=== PATIENT | male | born 1975 | race Hispanic/Latino ===

== ENCOUNTER 2016-06-01 01:15 | Emergency (ER) | payer SELFPAY ==
[2016-06-01 01:35] VITALS: BP 138/90; PULSE 128; RESP 18; TEMP 98.7; O2SAT 96; BMI 19.0
--- NOTE | 2016-06-01 01:44 | ED PDOC ---
Arrival/HPI - General Chief Complaint: Psychiatric Evaluation Time Seen by Provider: 06/01/16 01:22 Historian: Patient - History of Present Illness Narrative History of Present Illness (Text): 06/01/16 01:44 Barry Diallo is a 40 year old male who presents to the Emergency department brought in by EMS status post argument with his ex-. Patient states he recently from his spouse and reports tonight he got in to an argument with his ex-. Patient states he refused to answer his phone following the argument and his ex- notified their son. Son became concerned that the patient was not answering the phone and called the police. Patient states he feels completely fine and denies any depression, suicidal ideation, homicidal ideation, or any other complaints. Patient admits to drinking alcohol earlier during the day. Patient denies any fever, chills, chest pain, shortness of breath, nausea, vomiting, diarrhea, urinary symptoms, back pain, neck pain, headache, dizziness, or any other complaints. Time/Duration: Other (tonight) Symptom Onset: Gradual Symptom Course: Unchanged Activities at Onset: Rest, Light Context: Home Past Medical History - Provider Review Nursing Documentation Reviewed: Yes - Past History Past History: No Previous - Infectious Disease Hx of Infectious Diseases: None - Tetanus Immunization Tetanus Immunization: Up to Date - Past Medical History Past Medical History: No Previous - Cardiac Hx Cardiac Disorders: No - Pulmonary Hx Respiratory Disorders: No - Neurological Hx Neurological Disorder: No - HEENT Hx HEENT Disorder: No - Renal Hx Renal Disorder: No - Endocrine/Metabolic Hx Endocrine Disorders: No - Hematological/Oncological Hx Blood Disorders: No - Integumentary Hx Dermatological Disorder: No - Musculoskeletal/Rheumatological Hx Musculoskeletal Disorders: No - Gastrointestinal Hx Gastrointestinal Disorders: No - Genitourinary/Gynecological Hx Genitourinary Disorders: No - Psychiatric Hx Depression: No Hx Emotional Abuse: No Hx Physical Abuse: No Hx Substance Use: No - Past Surgical History Past Surgical History: No Previous - Anesthesia Hx Anesthesia: No - Suicidal Assessment Feels Threatened In Home Enviroment: No Family/Social History - Physician Review Nursing Documentation Reviewed: Yes Family/Social History: No Known Family HX Smoking Status: Light Smoker < 10 Cigarettes Daily Hx Alcohol Use: Yes Frequency of alcohol use: Socially Hx Substance Use: No Hx Substance Use Treatment: No Allergies/Home Meds Allergies/Adverse Reactions: Allergies No Known Allergies Allergy (Verified 04/27/17 01:33) Home Medications: Home Meds Medication Instructions Recorded Confirmed No Known Home Med 06/01/16 06/01/16 Review of Systems - Physician Review All systems were reviewed & negative as marked: Yes - Review of Systems Constitutional: Normal. absent: Fevers Eyes: Normal ENT: Normal Respiratory: Normal. absent: SOB, Cough Cardiovascular: Normal. absent: Chest Pain Gastrointestinal: Normal. absent: Abdominal Pain, Diarrhea, Nausea, Vomiting Genitourinary Male: Normal. absent: Dysuria, Frequency, Hematuria, Urinary Output Changes Musculoskeletal: Normal. absent: Back Pain, Neck Pain Skin: Normal. absent: Rash Neurological: Normal. absent: Headache, Dizziness Endocrine: Normal Hemo/Lymphatic: Normal Psychiatric: Normal. absent: Depression, Suicidal Ideation Physical Exam Vital Signs Reviewed: Yes Vital Signs Temp Pulse Resp BP Pulse Ox 06/01/16 01:34 98.7 F 128 H 18 138/90 96 Temperature: Afebrile Blood Pressure: Normal Pulse: Regular Respiratory Rate: Normal Appearance: Positive for: Well-Appearing, Non-Toxic, Comfortable Pain Distress: None Mental Status: Positive for: Alert and Oriented X 3 - Systems Exam Head: Present: Atraumatic, Normocephalic Pupils: Present: PERRL Extroacular Muscles: Present: EOMI Conjunctiva: Present: Normal Mouth: Present: Moist Mucous Membranes Neck: Present: Normal Range of Motion Respiratory/Chest: Present: Clear to Auscultation, Good Air Exchange. No: Respiratory Distress, Accessory Muscle Use Cardiovascular: Present: Regular Rate and Rhythm, Normal S1, S2. No: Murmurs Abdomen: Present: Normal Bowel Sounds. No: Tenderness, Distention, Peritoneal Signs Back: Present: Normal Inspection Upper Extremity: Present: Normal Inspection. No: Cyanosis, Edema Lower Extremity: Present: Normal Inspection. No: Edema Neurological: Present: GCS=15, CN II-XII Intact, Speech Normal Skin: Present: Warm, Dry, Normal Color. No: Rashes Psychiatric: Present: Alert, Oriented x 3, Normal Insight, Normal Concentration Medical Decision Making ED Course and Treatment: 06/01/16 01:44 Impression: 40 year old male brought in s/p argument with ex- tonight. Plan: -- EKG -- Labs, alcohol level -- Urinalysis, urine drug screen -- Reassess and disposition Prior Visits: Notes and results from previous visits were reviewed. cleared by pes for dc Progress Notes: 06/01/16 05:39 - Lab Interpretations Lab Results: 06/01/16 02:17 06/01/16 02:17 Lab Results 06/01/16 03:52: Salicylates < 1 L, Acetaminophen < 10.0 L 06/01/16 02:17: Urine Opiates Screen Negative, Urine Methadone Screen Negative, Ur Barbiturates Screen Negative, Ur Phencyclidine Scrn Negative, Ur Amphetamines Screen Negative, U Benzodiazepines Scrn Negative, U Oth Cocaine Metabols Negative, U Cannabinoids Screen Negative 06/01/16 02:17: Alcohol, Quantitative 170 H 06/01/16 02:17: Sodium 141, Potassium 3.6, Chloride 97, Carbon Dioxide 21, Anion Gap 27 H, BUN 21, Creatinine 0.6, Est GFR ( Amer) > 60, Est GFR ( Non-Af Amer) > 60, Random Glucose 115 H, Calcium 8.8, Total Bilirubin 0.3, AST 35, ALT 36, Alkaline Phosphatase 87, Total Protein 8.0, Albumin 4.5, Globulin 3.4, Albumin/Globulin Ratio 1.3 06/01/16 02:17: Urine Color Yellow, Urine Appearance Clear, Urine pH 6.5, Ur Specific [place] 1.020, Urine Protein 30 H, Urine Glucose (UA) Negative, Urine Ketones Trace H, Urine Blood Negative, Urine Nitrate Negative, Urine Bilirubin Negative, Urine Urobilinogen 0.2, Ur Leukocyte Esterase Negative, Urine RBC 0 - 2, Urine WBC 0 - 2, Ur Epithelial Cells 0 - 2 06/01/16 02:17: WBC 7.4 D, RBC 5.04, Hgb 16.3, Hct 45.8, MCV 90.9, MCH 32.3, MCHC 35.6, RDW 13.3, Plt Count 223, MPV 9.9, Gran % 66.1, Lymph % (Auto) 26.0, [place] % (Auto) 6.5 H, Eos % (Auto) 0.9 L, Baso % (Auto) 0.5, Gran # 4.87, Lymph # 1.9, [place] # 0.5, Eos # 0.1, Baso # 0.04 I have reviewed the lab results: Yes - EKG Interpretation Interpreted by ED Physician: Yes Type: 12 lead EKG - Scribe Statement The provider has reviewed the documentation as recorded by the Dolly Miranda Provider Attestation: All medical record entries made by the Dolly were at my direction and personally dictated by me. I have reviewed the chart and agree that the record accurately reflects my personal performance of the history, physical exam, medical decision making, and the department course for this patient. I have also personally directed, reviewed, and agree with the discharge instructions and disposition. Disposition/Present on Arrival - Present on Arrival Any Indicators Present on Arrival: No History of DVT/PE: No History of Uncontrolled Diabetes: No Urinary Catheter: No History of Decub. Ulcer: No History Surgical Site Infection Following: None - Disposition Have Diagnosis and Disposition been Completed?: Yes Diagnosis: Substance induced mood disorder Disposition: HOME/ ROUTINE Disposition Time: 05:39 Condition: GOOD
[2016-06-01 02:31] LABS: ADD MANUAL DIFF? NO
[2016-06-01 02:38] LABS: PH,URINE 6.5 (4.7-8.0); URINE BILIRUBIN NEGATIVE (NEGATIVE); URINE BLOOD NEGATIVE (NEGATIVE); URINE GLUCOSE (UA) NEGATIVE (NEGATIVE); URINE KETONE TRACE mg/dL (NEGATIVE); URINE LEUKOCYTE ESTERASE NEGATIVE Leu/uL (NEGATIVE); URINE PROTEIN 30 mg/dL (<30 mg/dL); URINE UROBILINOGEN 0.2 E.U./dL (<1 E.U./dL)
[2016-06-01 02:40] LABS: BASO # 0.04 K/mm3 (0.0-2.0); BASO % 0.5 % (0.0-3.0); EOS # 0.1 (0.0-0.7); EOS % 0.9 % (1.5-5.0); GRAN # 4.87 (1.4-6.5); GRAN % 66.1 % (50.0-68.0); HEMATOCRIT 45.8 % (42.0-52.0); LYMPH # 1.9 (1.2-3.4); MEAN CELL VOLUME 90.9 fL (80.0-105.0); MEAN CORPUSCULAR HEMOGLOBIN 32.3 pg (25.0-35.0); MEAN CORPUSCULAR HGB CONC 35.6 g/dl (31.0-37.0); MEAN PLATELET VOLUME 9.9 fl (7.0-11.0); MONO # 0.5 (0.1-0.6); MONO % 6.5 % (1.0-6.0); PLATELET COUNT 223 10^3/uL (120.0-450.0); RED CELL DISTRIBUTION WIDTH 13.3 % (11.5-14.5); WHITE BLOOD COUNT 7.4 10^3/ul (4.5-11.0)
[2016-06-01 02:45] LABS: URINE APPEARANCE CLEAR (CLEAR); URINE COLOR YELLOW (YELLOW)
[2016-06-01 02:48] LABS: URINE EPITHELIAL CELLS 0 - 2 /hpf (0-5); URINE RBC 0 - 2 /hpf (0-2); URINE WBC 0 - 2 /hpf (0-6)
[2016-06-01 02:49] LABS: ALB/GLOB RATIO 1.3 (1.1-1.8); ALKALINE PHOSPHATASE 87 U/L (38-133); ALT/SGPT 36 U/L (7-56); AST/SGOT 35 U/L (15-59); BILIRUBIN,TOTAL 0.3 mg/dL (0.2-1.3); BLOOD UREA NITROGEN 21 mg/dL (7-21); CALCIUM 8.8 mg/dL (8.4-10.5); CARBON DIOXIDE 21 mmol/L (21-33); CHLORIDE 97 mmol/L (95-110); GFR AFRICAN-AMERICAN > 60; GLUCOSE,RANDOM 115 mg/dL (70-110); POTASSIUM 3.6 mmol/L (3.6-5.0); SODIUM 141 mmol/L (132-148)
--- NOTE | 2016-06-01 10:19 | CARD ---
APPROVED REPORT EKG Measurement Heart [id number] <Conclusion> Sinus tachycardia Possible Left atrial enlargement
== END 2016-06-01 05:46 | disposition home or self-care (01) ==
LOC: ED 01:15
DX: F19.94 Other psychoactive substance use, unspecified with psychoactive substance-induced mood disorder (principal)
CPT/HCPCS: 80053; 81001; 85025; 90791; 93005; 99283; G0480

== ENCOUNTER 2016-07-26 06:56 | Inpatient (IN) | payer OTHER ==
[2016-07-26 06:58] VITALS: BMI 19.0
[2016-07-26 07:33] LABS: ADD MANUAL DIFF? NO
[2016-07-26 07:38] LABS: BASO # 0.03 K/mm3 (0.0-2.0); BASO % 0.4 % (0.0-3.0); EOS # 0.1 (0.0-0.7); EOS % 1.3 % (1.5-5.0); GRAN # 4.94 (1.4-6.5); GRAN % 72.9 % (50.0-68.0); HEMATOCRIT 41.8 % (42.0-52.0); LYMPH # 1.2 (1.2-3.4); MEAN CELL VOLUME 91.5 fL (80.0-105.0); MEAN CORPUSCULAR HEMOGLOBIN 31.9 pg (25.0-35.0); MEAN CORPUSCULAR HGB CONC 34.9 g/dl (31.0-37.0); MEAN PLATELET VOLUME 9.7 fl (7.0-11.0); MONO # 0.5 (0.1-0.6); MONO % 7.4 % (1.0-6.0); PLATELET COUNT 223 10^3/uL (120.0-450.0); RED CELL DISTRIBUTION WIDTH 13.4 % (11.5-14.5); WHITE BLOOD COUNT 6.8 10^3/ul (4.5-11.0)
[2016-07-26 07:51] LABS: ALB/GLOB RATIO 1.4 (1.1-1.8); ALKALINE PHOSPHATASE 91 U/L (38-133); ALT/SGPT 30 U/L (7-56); AST/SGOT 28 U/L (15-59); BILIRUBIN,TOTAL 1.7 mg/dL (0.2-1.3); BLOOD UREA NITROGEN 14 mg/dL (7-21); CALCIUM 9.1 mg/dL (8.4-10.5); CARBON DIOXIDE 24 mmol/L (21-33); CHLORIDE 100 mmol/L (98-107); GFR AFRICAN-AMERICAN > 60; GLUCOSE,RANDOM 87 mg/dL (70-110); POTASSIUM 3.4 mmol/L (3.6-5.0); SODIUM 136 mmol/L (132-148); TOTAL PROTEIN 7.1 g/dL (5.8-8.3)
--- NOTE | 2016-07-26 08:28 | ED PDOC ---
Arrival/HPI - General Chief Complaint: Psychiatric Evaluation Time Seen by Provider: 07/26/16 07:14 Historian: Patient - History of Present Illness Narrative History of Present Illness (Text): 07/26/16 07:15 A 40 year old male with no significant past medical history presents to the emergency department with complaints of depression with suicidal ideation and mild tremors, which worsened with drinking for the last few days. Patient denies homicidal ideation, visual, auditory hallucinations, or any other symptoms at this time. PMD: None Symptom Onset: Gradual Symptom Course: Worsening Modifying Factors (Text): Alcohol use Context: Home Past Medical History - Past History Past History: No Previous - Infectious Disease Hx of Infectious Diseases: None - Tetanus Immunization Tetanus Immunization: Up to Date - Past Medical History Past Medical History: No Previous - Cardiac Hx Cardiac Disorders: No - Pulmonary Hx Respiratory Disorders: No - Neurological Hx Neurological Disorder: No - HEENT Hx HEENT Disorder: No - Renal Hx Renal Disorder: No - Endocrine/Metabolic Hx Endocrine Disorders: No - Hematological/Oncological Hx Blood Disorders: No - Integumentary Hx Dermatological Disorder: No - Musculoskeletal/Rheumatological Hx Musculoskeletal Disorders: No - Gastrointestinal Hx Gastrointestinal Disorders: No - Genitourinary/Gynecological Hx Genitourinary Disorders: No - Psychiatric Hx Psychophysiologic Disorder: Yes Hx Anxiety: Yes Hx Depression: Yes Hx Substance Use: No - Past Surgical History Past Surgical History: No Previous - Anesthesia Hx Anesthesia: No - Suicidal Assessment Feels Threatened In Home Enviroment: No Family/Social History - Physician Review Nursing Documentation Reviewed: Yes Family/Social History: Unknown Family HX Smoking Status: Heavy Smoker > 10 Cigarettes Daily Hx Alcohol Use: Yes Frequency of alcohol use: Few days per week Hx Substance Use: No Hx Substance Use Treatment: No Allergies/Home Meds Allergies/Adverse Reactions: Allergies No Known Allergies Allergy (Verified 06/01/16 01:33) Home Medications: Home Meds Medication Instructions Recorded Confirmed No Known Home Med 06/01/16 07/26/16 Review of Systems - Physician Review All systems were reviewed & negative as marked: Yes - Review of Systems Constitutional: Normal. absent: Fevers Eyes: Normal. absent: Eye Pain Respiratory: absent: SOB, Cough Cardiovascular: absent: Chest Pain Gastrointestinal: absent: Abdominal Pain Musculoskeletal: Normal. absent: Back Pain Neurological: Other (Mild tremors) Psychiatric: Depression, Suicidal Ideation, Other (No homicidal ideation or hallucinations ) Physical Exam Vital Signs Reviewed: Yes Vital Signs Temp Pulse Resp BP Pulse Ox 07/26/16 10:56 109 H 18 125/66 100 07/26/16 09:09 88 18 132/86 99 07/26/16 07:08 98.1 F 91 H 20 127/80 97 Temperature: Afebrile Blood Pressure: Normal Pulse: Regular Respiratory Rate: Normal Appearance: Positive for: Well-Appearing, Non-Toxic, Comfortable Pain Distress: None Mental Status: Positive for: Alert and Oriented X 3 - Systems Exam Head: Present: Atraumatic, Normocephalic Pupils: Present: PERRL Extroacular Muscles: Present: EOMI Conjunctiva: Present: Normal Mouth: Present: Moist Mucous Membranes Neck: Present: Normal Range of Motion Respiratory/Chest: Present: Clear to Auscultation, Good Air Exchange. No: Respiratory Distress, Accessory Muscle Use Cardiovascular: Present: Regular Rate and Rhythm, Normal S1, S2. No: Murmurs Abdomen: Present: Normal Bowel Sounds. No: Tenderness, Distention, Peritoneal Signs Upper Extremity: Present: Normal Inspection. No: Cyanosis, Edema Lower Extremity: Present: Normal Inspection. No: Edema Neurological: Present: GCS=15, CN II-XII Intact, Speech Normal, Other (mild tremors) Skin: Present: Warm, Dry, Normal Color. No: Rashes Psychiatric: Present: Alert, Oriented x 3, Normal Insight, Suicidal Ideation. No: Homicidal Ideation, Hallucinations Medical Decision Making ED Course and Treatment: Impression: A 40 year old male presents with depression, suicidal ideation and mild tremors, which worsened with alcohol use. Differential Diagnosis included but are not limited to: Plan: -- EKG -- Labs -- Librium, Potassium Chloride -- Reassess and disposition Prior Visits: Notes and results from previous visits were reviewed. Patient was last seen in the Emergency department on 06/01/16 brought in by EMS after argument and discharged home. Progress Notes: EKG: Ordered, reviewed, and independently interpreted the EKG. Rate : 86 BPM Rhythm : NSR Interpretation : No ST/T changes Chest X-Ray Bus System Operator : Padmini Segura MD Report Date : 07/26/2016 09:40 IMPRESSION: No active pulmonary disease. Patient is medically cleared. Patient evaluated by PES and is accepted to psych department. - Lab Interpretations Lab Results: 07/26/16 07:21 07/26/16 07:21 Lab Results 07/26/16 09:00: Urine Opiates Screen Negative, Urine Methadone Screen Negative, Ur Barbiturates Screen Negative, Ur Phencyclidine Scrn Negative, Ur Amphetamines Screen Negative, U Benzodiazepines Scrn Negative, U Oth Cocaine Metabols Negative, U Cannabinoids Screen Negative 07/26/16 09:00: Urine Color Dark yellow, Urine Appearance Clear, Urine pH 6.0, Ur Specific [place] 1.025, Urine Protein 30 H, Urine Glucose (UA) Negative, Urine Ketones >=80, Urine Blood Negative, Urine Nitrate Negative, Urine Bilirubin Moderate H, Urine Urobilinogen 1.0 H, Ur Leukocyte Esterase Negative, Urine RBC 0 - 2, Urine WBC 0 - 2, Ur Epithelial Cells 0 - 2, Urine Bacteria Trace 07/26/16 07:21: Alcohol, Quantitative < 10 07/26/16 07:21: Salicylates < 1 L, Acetaminophen < 10.0 L 07/26/16 07:21: Sodium 136, Potassium 3.4 L, Chloride 100, Carbon Dioxide 24, Anion Gap 15, BUN 14, Creatinine 0.6, Est GFR ( Amer) > 60, Est GFR (Non- Af Amer) > 60, Random Glucose 87, Calcium 9.1, Total Bilirubin 1.7 H, AST 28, ALT 30, Alkaline Phosphatase 91, Total Protein 7.1, Albumin 4.2, Globulin 2.9, Albumin/Globulin Ratio 1.4 07/26/16 07:21: WBC 6.8, RBC 4.57, Hgb 14.6, Hct 41.8 L, MCV 91.5, MCH 31.9, MCHC 34.9, RDW 13.4, Plt Count 223, MPV 9.7, Gran % 72.9 H, Lymph % (Auto) 18.0 L, [place] % (Auto) 7.4 H, Eos % (Auto) 1.3 L, Baso % (Auto) 0.4, Gran # 4.94, Lymph # 1.2, [place] # 0.5, Eos # 0.1, Baso # 0.03 - RAD Interpretation Radiology Orders: 07/26/16 07:17 CHEST PORTABLE [RAD] Stat - Medication Orders Current Medication Orders: Discontinued Medications Chlordiazepoxide (Librium) 50 mg PO STAT STA PRN Reason: Protocol Stop: 07/26/16 07:18 Last Admin: 07/26/16 07:37 Dose: 50 mg Potassium Chloride (K-Dur 20 Meq Er Tab) 20 meq PO STAT STA Stop: 07/26/16 09:08 Last Admin: 07/26/16 09:16 Dose: 20 meq - Scribe Statement The provider has reviewed the documentation as recorded by the Dolly Esparza training under [place] Josie Provider Scribe Attestation: All medical record entries made by the Alejandroiblaney were at my direction and personally dictated by me. I have reviewed the chart and agree that the record accurately reflects my personal performance of the history, physical exam, medical decision making, and the department course for this patient. I have also personally directed, reviewed, and agree with the discharge instructions and disposition. Disposition/Present on Arrival - Present on Arrival Any Indicators Present on Arrival: No History of DVT/PE: No History of Uncontrolled Diabetes: No Urinary Catheter: No History of Decub. Ulcer: No History Surgical Site Infection Following: None - Disposition Have Diagnosis and Disposition been Completed?: Yes Diagnosis: Depression, Alcohol use disorder Disposition Time: 10:00 Condition: STABLE
[2016-07-26] MEDS ORDERED: Potassium Chloride 20 mEq ER Tab PO STA (09:07)
[2016-07-26 09:36] LABS: URINE BILIRUBIN MODERATE (NEGATIVE); URINE BLOOD NEGATIVE (NEGATIVE); URINE GLUCOSE (UA) NEGATIVE (NEGATIVE); URINE KETONE >=80 mg/dL (NEGATIVE); URINE LEUKOCYTE ESTERASE NEGATIVE Leu/uL (NEGATIVE); URINE PROTEIN 30 mg/dL (<30 mg/dL)
[2016-07-26 09:41] LABS: URINE APPEARANCE CLEAR (CLEAR); URINE COLOR DARK YELLOW (YELLOW)
--- NOTE | 2016-07-26 09:41 | RAD ---
HISTORY: pysch COMPARISON: 06/08/2014. FINDINGS: LUNGS: The lungs are well inflated and clear. PLEURA: No significant pleural effusion identified, no pneumothorax apparent. CARDIOVASCULAR: Normal. OSSEOUS STRUCTURES: No significant abnormalities. VISUALIZED UPPER ABDOMEN: Normal. OTHER FINDINGS: None. IMPRESSION: No active pulmonary disease.
[2016-07-26 09:43] LABS: URINE BACTERIA TRACE (NEG); URINE EPITHELIAL CELLS 0 - 2 /hpf (0-5); URINE RBC 0 - 2 /hpf (0-2); URINE WBC 0 - 2 /hpf (0-6)
[2016-07-26 10:57] VITALS: O2SAT 100
--- NOTE | 2016-07-26 15:28 | CARD ---
APPROVED REPORT EKG Measurement Heart [id number] <Conclusion> Normal sinus rhythm Normal ECG
--- NOTE | 2016-07-26 16:21 | PCM.BM ---
<Augusto Jarquin - Last Filed: 07/27/16 10:24> Treatment Plan Problems - Problems identified on initial assessmt Anxiety Date Initiated: 07/26/16 Time Initiated: 16:19 Assessment reference: NA Status: Active Priority: 1 Suicidal Date Initiated: 07/26/16 Time Initiated: 16:20 Assessment reference: NA Status: Active Priority: 2 Ineffective coping Date Initiated: 07/26/16 Time Initiated: 16:22 Assessment reference: NA Status: Active Priority: 3 alcohol use Date Initiated: 07/27/16 Time Initiated: 10:25 Assessment reference: NA Status: Active Priority: 4 Treatment team patient informa Patient Assests: educated, self-reliant, ADL independent, physically healthy, cognitively intact Patient Liabilities: live alone, financial problems, relationship conflicts, substance abuse - Milieu Protocol Maintain good personal hygiene: daily Encourage regular showers, daily Remind patient to perform daily oral care, daily Assist patient to perform ADL's Maintain personal safety: daily Educate patient to report safety concerns to staff, daily Monitor environment for contraband/sharps Medication safety: Monitor for expected outcome, potential side effects: daily, Assess barriers to learning: daily, Assess readiness for medication education: daily Family Contact Family involvement: Famliy/SO not involved Discharge/Continuing Care - Education Needs Education Needs: Patient Medication, Patient Diagnosis/Disease Process, Patient Coping Skills, Patient Anger Management skills, Patient Community resources, Patient Activities of Daily Living, Patient Health Practices/Safety, Patient Personal Hygiene/Grooming, Patient Aftercare Safety Plan - Discharge Discharge Criteria: Tolerates medication w/o severe side effects, Free of Suicidal thoughts, Normal sleep pattern, Ability to care for self, No longer exhibiting s/s of withdrawal, Reduction of target symptoms Discharge to:: Home <Michelle Lazar - Last Filed: 07/28/16 15:13> Treatment team patient informa Patient Assests: ADL independent, negotiates basic needs Patient Liabilities: poor support system, relationship conflicts, substance abuse - Milieu Protocol Maintain good personal hygiene: daily Encourage regular showers, daily Remind patient to perform daily oral care, daily Assist patient to perform ADL's Conduct patient checks and document Observation sheet: Q15 minutes Maintain personal safety: every shift Educate patient to report safety concerns to staff, every shift Monitor environment for contraband/sharps Medication safety: Monitor for expected outcome, potential side effects: every shift, Assess barriers to learning: every shift, Assess readiness for medication education: every shift Family Contact Family involvement: Family/SO is involved Discharge/Continuing Care - Education Needs Education Needs: Patient Medication, Patient Diagnosis/Disease Process, Patient Coping Skills, Patient Community resources, Patient Activities of Daily Living, Patient Personal Hygiene/Grooming - Discharge Discharge Criteria: Free of Suicidal thoughts, Normal sleep pattern, Ability to care for self, No longer exhibiting s/s of withdrawal Discharge to:: Home <Verónica Livingston - Last Filed: 07/28/16 17:06> DSM5-Treatment Plan - Diagnosis (1) MDD (major depressive disorder) Status: Acute Interventions: 07/27/16 13:54 * Assess/adjust medications daily and /or as needed * See patient on an individual basis 7x/week to assess symptoms of depression * Monitor for side effects & effectiveness of medications * psychoeducation * suicide prevention * compliance with meds and f/u appt * coping strategies * family therapy * (2) Alcohol dependence with uncomplicated withdrawal Status: Acute Interventions: 07/27/16 13:55 * Assess/adjust medications daily and /or as needed * See patient on an individual basis 7x/week to assess symptoms of depression * Monitor for side effects & effectiveness of medications * motivational interview * supportive therapy * relapse prevention * monitoring withdrawal symptoms * coping strategies * AA, NA meetings * M[facility] program * naltrexone/antabuse/campral (3) Alcohol use disorder Status: Acute Interventions: Assess/adjust medications daily and /or as needed * See patient on an individual basis 7x/week to assess symptoms of depression * Monitor for side effects & effectiveness of medications * motivational interview * supportive therapy * relapse prevention * monitoring withdrawal symptoms * coping strategies * AA, NA meetings * M[facility] program * naltrexone/antabuse/campral
[2016-07-27 07:59] LABS: CHOLESTEROL 157 mg/dL (130-200); GLUCOSE,FASTING 96 mg/dL (65-110)
[2016-07-27 08:17] LABS: FREE T4 1.15 ng/dL (0.78-2.19)
[2016-07-27 08:31] LABS: THYROID STIMULATING HORMONE 3.42 mIU/mL (0.46-4.68)
[2016-07-27] MEDS: Multivitamin Therapeutic Tab PO SCH (09:12)
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
--- NOTE | 2016-07-27 14:27 | CP.PCM.CON ---
<Ernst Natarajan - Last Filed: 07/27/16 14:19> History of Present Illness - History of Present Illness History of Present Illness: Internal Medicine Consult Note This is a 40 y/o male admitted to psychiatric unit for depression and SI. Patient states he has been feeling depressed. He states he has been binge drinking 3 to 4 times a week for the past several weeks. Prior to admission he notes that he binge drank and woke up the next morning and suffered what he thought was a seizure. He denies ingestion of other drugs in suicide attempt. He reports withdrawal sx after alcohol cessation. Patient denies homicidal ideation. States that prior to admission he planned to drink enough alcohol in order to commit suicide. Patient also notes chronic gastric reflux. States he has suffered from this for years. He does not take any medication for this, nor any other prescription medications. PMH: GERD, depression PSH: none Fhx: liver cirrhosis Social Hx: admits to smoking 1ppd for about 20 years. Binge drinking 1L to 1 gallon of vodka at a time. Last drink was prior to arrival. Denies illicit drug use. PMD: Dr. Nicol Juan Review of Systems - Constitutional Constitutional: absent: Chills, Fever, Headache - EENT Eyes: absent: Blurred Vision, Change in Vision Nose/Mouth/Throat: absent: Nasal Congestion, Nasal Discharge, Sore Throat - Cardiovascular Cardiovascular: absent: Chest Pain, Dyspnea - Respiratory Respiratory: absent: Cough, Dyspnea - Gastrointestinal Gastrointestinal: Dyspepsia. absent: Abdominal Pain, Diarrhea, Dysphagia, Loose Stools, Nausea, Vomiting - Genitourinary Genitourinary: absent: Dysuria, Hematuria - Musculoskeletal Musculoskeletal: absent: Back Pain - Integumentary Integumentary: absent: Pruritus, Rash - Neurological Neurological: absent: Dizziness, Numbness, Focal Weakness - Psychiatric Psychiatric: Depression, Suicidal Ideation. absent: Hallucinations, Homicidal Ideation, Paranoia Past Patient History - Infectious Disease Hx of Infectious Diseases: None - Tetanus Immunizations Tetanus Immunization: Up to Date - Past Social History Smoking Status: Heavy Smoker > 10 Cigarettes Daily - CARDIAC Hx Cardiac Disorders: No - PULMONARY Hx Respiratory Disorders: No - NEUROLOGICAL Hx Neurological Disorder: No - HEENT Hx HEENT Problems: No - RENAL Hx Chronic Kidney Disease: No - ENDOCRINE/METABOLIC Hx Endocrine Disorders: No - HEMATOLOGICAL/ONCOLOGICAL Hx Blood Disorders: No - INTEGUMENTARY Hx Dermatological Problems: No - MUSCULOSKELETAL/RHEUMATOLOGICAL Hx Musculoskeletal Disorders: No - GASTROINTESTINAL Hx Gastrointestinal Disorders: No - GENITOURINARY/GYNECOLOGICAL Hx Genitourinary Disorders: No - PSYCHIATRIC Hx Psychophysiologic Disorder: Yes Hx Anxiety: Yes Hx Depression: Yes Hx Substance Use: No - SURGICAL HISTORY Hx Surgeries: No - ANESTHESIA Hx Anesthesia: No Meds Allergies/Adverse Reactions: Allergies Allergy/AdvReac Type Severity Reaction Status Date / Time No Known Allergies Allergy Verified 06/01/16 01:33 - Medications Medications: Current Medications Acetaminophen (Tylenol 325mg Tab) 650 mg PO Q4H PRN PRN Reason: Pain, moderate (4-7) Last Admin: 07/26/16 14:11 Dose: 650 mg Bupropion HCl (Wellbutrin) 75 mg PO BID [facility] Chlordiazepoxide (Librium) 50 mg PO QID [facility] PRN Reason: Protocol Last Admin: 07/27/16 13:43 Dose: 50 mg Folic Acid (Folic Acid) 1 mg PO DAILY [facility] Last Admin: 07/27/16 09:12 Dose: 1 mg Multivitamins (Thera Tab) 1 tab PO 0800 [facility] Last Admin: 07/27/16 09:12 Dose: 1 tab Nicotine (Nicoderm Cq) 1 patch TD DAILY [facility] Last Admin: 07/27/16 09:12 Dose: 1 patch Pantoprazole Sodium (Protonix Ec Tab) 40 mg PO 0600 [facility] Thiamine HCl (Vitamin B1 Tab) 100 mg PO DAILY [facility] Last Admin: 07/27/16 09:12 Dose: 100 mg Trazodone HCl (Desyrel) 50 mg PO HS [facility] Last Admin: 07/26/16 21:13 Dose: 50 mg Physical Exam - Constitutional Appears: Non-toxic, No Acute Distress - Head Exam Head Exam: ATRAUMATIC, NORMOCEPHALIC - Eye Exam Eye Exam: EOMI, PERRL - ENT Exam ENT Exam: Mucous Membranes Moist - Respiratory Exam Respiratory Exam: Clear to Auscultation Bilateral. absent: Rales, Rhonchi - Cardiovascular Exam Cardiovascular Exam: REGULAR RHYTHM - GI/Abdominal Exam GI & Abdominal Exam: Soft. absent: Tenderness - Extremities Exam Extremities exam: Positive for: normal inspection. Negative for: calf tenderness, pedal edema - Neurological Exam Neurological exam: Alert, Oriented x3 - Psychiatric Exam Psychiatric exam: Normal Affect, Normal Mood - Skin Skin Exam: Dry, Warm Results - Vital Signs Recent Vital Signs: Last Vital Signs Temp 97.4 F L 07/27/16 07:49 Pulse 90 07/27/16 07:49 Resp 20 07/27/16 07:49 BP 104/76 07/27/16 07:49 Pulse Ox 100 07/26/16 10:56 - Labs Result Diagrams: 07/26/16 07:21 07/26/16 07:21 Labs: Laboratory Results - last 24 hr 07/27/16 07/27/16 07:00 07:00 Fasting Glucose 96 Triglycerides 143 Cholesterol 157 LDL Cholesterol Direct 92 HDL Cholesterol 55 Free T4 1.15 TSH 3rd Generation 3.42 Assessment & Plan - Assessment and Plan (Free Text) Assessment: 40 y/o male admitted to psychiatry with depression and suicidal ideation. alchohol abuse - Librium taper - Ativan PRN added - alcohol cessation discussed with patient. He is advised to continue with AA meetings, psychiatric care once discharged. Explained that alcohol cessation will positively effect his mental illness. Gastric reflux - Protonix 40mg daily - advised that he will need to f/u with PCP as outpatient for GI referral Tobacco use - Nicotine patch has been ordered - patient advised on the importance of tobacco cessation. Dispo: patient will need medical f/u after discharge with his PCP. Will follow patient peripherally. Please re-consult if necessary. <Reina García - Last Filed: 07/27/16 15:46> Meds - Medications Medications: Current Medications Acetaminophen (Tylenol 325mg Tab) 650 mg PO Q4H PRN PRN Reason: Pain, moderate (4-7) Last Admin: 07/26/16 14:11 Dose: 650 mg Bupropion HCl (Wellbutrin) 75 mg PO BID [facility] Chlordiazepoxide (Librium) 50 mg PO QID RACHELLE PRN Reason: Protocol Last Admin: 07/27/16 13:43 Dose: 50 mg Folic Acid (Folic Acid) 1 mg PO DAILY [facility] Last Admin: 07/27/16 09:12 Dose: 1 mg Multivitamins (Thera Tab) 1 tab PO 0800 [facility] Last Admin: 07/27/16 09:12 Dose: 1 tab Nicotine (Nicoderm Cq) 1 patch TD DAILY [facility] Last Admin: 07/27/16 09:12 Dose: 1 patch Pantoprazole Sodium (Protonix Ec Tab) 40 mg PO 0600 RACHELLE Thiamine HCl (Vitamin B1 Tab) 100 mg PO DAILY [facility] Last Admin: 07/27/16 09:12 Dose: 100 mg Trazodone HCl (Desyrel) 50 mg PO HS RACHELLE Last Admin: 07/26/16 21:13 Dose: 50 mg Results - Vital Signs Recent Vital Signs: Last Vital Signs Temp 97.4 F L 07/27/16 07:49 Pulse 115 H 07/27/16 15:38 Resp 20 07/27/16 07:49 BP 94/67 L 07/27/16 15:38 Pulse Ox 100 07/26/16 10:56 - Labs Result Diagrams: 07/26/16 07:21 07/26/16 07:21 Labs: Laboratory Results - last 24 hr 07/27/16 07/27/16 07:00 07:00 Fasting Glucose 96 Triglycerides 143 Cholesterol 157 LDL Cholesterol Direct 92 HDL Cholesterol 55 Free T4 1.15 TSH 3rd Generation 3.42 Attending/Attestation - Attestation I have personally seen and examined this patient.: Yes I have fully participated in the care of the patient.: Yes I have reviewed all pertinent clinical information: Yes Notes (Text): 07/27/16 15:44 attending note; Patient seen and examined with resident in room 514. Patient is a 40-year old male admitted with depression. Patient with chronic alcohol abuse. Continue Librium, multivitamin, thiamine, folic acid. Complete alcohol cessation is strongly advised. advised to attend AA meeting/AA rehabilitation. weigh and charge worker evaluation recommended. Active smoking; smoking cessation is advised. Currently on NicoDerm patch. History of GERD/alcohol or gastritis; started on Protonix. Needs GI evaluation and possible endoscopy as outpatient. patient is medically stable. advised to follow-up with PMD Dr. Juan upon discharge. Please reconsult as needed. Thank you for the courtesy of this consultation.
[2016-07-28] MEDS ORDERED: Pantoprazole 40 mg EC Tab PO SCH (06:00)
[2016-07-28] MEDS: Multivitamin Therapeutic Tab PO SCH (09:21)
--- NOTE | 2016-07-28 17:13 | PCM.PYCHPN ---
Psychiatric Progress Note - Psychiatric Progress Note Patient seen today, length of contact: 30 minutes Patient Chief Complaint: "I think I'm ready for naltrexone" Problems Identified/Issues Discussed: Suicide/ homicide prevention, past psychiatric h/o, current psychiatric symptoms , medical problems, risk/benefits and alternatives of medications, medications compliance, coping strategies, substance abuse h/o, relapse prevention, importance of follow up with psychiatrist and therapist, discharge plan. Medical Problems: see HPI pt never been in AA meeting, no rehabs or detoxes Diagnostic Results: 07/26/16 07:21 07/26/16 07:21 Lab Results 07/27/16 07:00: Free T4 1.15, TSH 3rd Generation 3.42 07/27/16 07:00: Fasting Glucose 96, Triglycerides 143, Cholesterol 157, LDL Cholesterol Direct 92, HDL Cholesterol 55 07/26/16 09:00: Urine Opiates Screen Negative, Urine Methadone Screen Negative, Ur Barbiturates Screen Negative, Ur Phencyclidine Scrn Negative, Ur Amphetamines Screen Negative, U Benzodiazepines Scrn Negative, U Oth Cocaine Metabols Negative, U Cannabinoids Screen Negative 07/26/16 09:00: Urine Color Dark yellow, Urine Appearance Clear, Urine pH 6.0, Ur Specific [place] 1.025, Urine Protein 30 H, Urine Glucose (UA) Negative, Urine Ketones >=80, Urine Blood Negative, Urine Nitrate Negative, Urine Bilirubin Moderate H, Urine Urobilinogen 1.0 H, Ur Leukocyte Esterase Negative, Urine RBC 0 - 2, Urine WBC 0 - 2, Ur Epithelial Cells 0 - 2, Urine Bacteria Trace 07/26/16 07:21: Alcohol, Quantitative < 10 07/26/16 07:21: Salicylates < 1 L, Acetaminophen < 10.0 L 07/26/16 07:21: Sodium 136, Potassium 3.4 L, Chloride 100, Carbon Dioxide 24, Anion Gap 15, BUN 14, Creatinine 0.6, Est GFR ( Amer) > 60, Est GFR (Non- Af Amer) > 60, Random Glucose 87, Calcium 9.1, Total Bilirubin 1.7 H, AST 28, ALT 30, Alkaline Phosphatase 91, Total Protein 7.1, Albumin 4.2, Globulin 2.9, Albumin/Globulin Ratio 1.4 07/26/16 07:21: WBC 6.8, RBC 4.57, Hgb 14.6, Hct 41.8 L, MCV 91.5, MCH 31.9, MCHC 34.9, RDW 13.4, Plt Count 223, MPV 9.7, Gran % 72.9 H, Lymph % (Auto) 18.0 L, Gates % (Auto) 7.4 H, Eos % (Auto) 1.3 L, Baso % (Auto) 0.4, Gran # 4.94, Lymph # 1.2, Gates # 0.5, Eos # 0.1, Baso # 0.03 Vital Signs Temp Pulse Resp BP Pulse Ox 07/28/16 16:13 101 H 97/61 L 07/28/16 07:30 98.1 F 88 20 100/67 07/27/16 15:38 115 H 94/67 L 07/27/16 07:49 97.4 F L 90 20 104/76 07/26/16 15:54 113 H 115/73 07/26/16 10:56 109 H 18 125/66 100 07/26/16 09:09 88 18 132/86 99 07/26/16 07:08 98.1 F 91 H 20 127/80 97 DSM 5 Symptoms Update: shortly pt is 40yo male, self reported h/o ADHD, h/o alcohol use disorder, self reported h/o MDD, not working, from the family//kids due to his alcohol addiction, was admitted to the psychiatric inpatient unit for evaluation of depressive symptoms, possible suicidal ideation with the plan to overdose on alcohol. pt was seen and examined today at the treatment team meeting, improved personal hygiene, less tearful, good ADLs. patient still has fine tremor in upper extremities, reported that at times he feels nauseated, all of the symptoms related to alcohol withdrawal symptoms, patient still tachycardic, patient also Librium 50 mg 4 times a day scheduled with the plan to taper that down. pt said that he is ready for naltrexon, risk benefits alternatives discussed with the patient. Patient is complained of insomnia still asked trazodone to be increased, patient did not have any therapeutic effect from Wellbutrin. Patient reported that he feels hopeless and helpless, very depressed, self blaming, a lot of regrets about his mistakes in life. patient tolerates medications well, no side effects observed or reported, aims 0 , no EPS. As per nursing staff patient preferred to stay by himself, but at times visible on the unit, flat affect, started to socialize with others, no agitation or aggression no behavioral incident. DSM 5 Diagnosis: MDD r/o substance induced mood disorder alcohol use disorder alcohol withdrawals (better) Medication Change: Yes (the Wellbutrin increased, trazodone increased, started) Medical Record Reviewed: Yes (labs, reports,medical team consultation) Consults ordered or reviewed: medical consult appreciated, please see notes for more detailed information Mental Status Examination - Cognitive Function Orientation: Person, Place, Situation, Time Memory: Intact Attention: Poor Concentration: Poor Association: WNL Fund of Knowledge: WNL - Mood Mood: Depressed - Affect Affect: Flat (and tearful) - Speech Speech: Appropriate - Formal Thought Process Formal Thought Process: No Impairment - Suicidal Ideation Suicidal Ideation: No - Homicidal Ideation Homicidal Ideation: No Goal/Treatment Plan - Goal/Treatment Plan Need for Continued Stay: Remain at risks for inpatient hospitalization, Severe depression anxiety, Discharge may exacerbated symptoms, Severe functional impairment Progress Toward Problem(s) and Goals/Treatment Plan: milieu/structure/supportive therapy MVI,thiamine, folic acid librium 50mg po qid scheduled for alcohol withdrawals with the plan to wean if off will monitor vitals closely Trazodone 100mg po hs for depression and insomnia will give Wellbutrin 100 bid for MDD and for ADHD (? self reported) home health care social worker evaluation pt never been in the rehabs in the past pt never attend AA meetings pt might benefit from family therapy medical consult will be called will monitor closely Nalterxone 50 MG WAS STARTED, RISK BENEFITS ALTERNATIVES DISCUSSED, EDUCATED ABOUT REVIA INJECTION Estimated Date of D/C: 08/01/16 (we'll monitor closely)
[2016-07-29] MEDS: Pantoprazole 40 mg EC Tab PO SCH (08:00)
[2016-07-29] MEDS: Multivitamin Therapeutic Tab PO SCH (09:00)
--- NOTE | 2016-07-29 09:09 | PCM.PYCHPN ---
Psychiatric Progress Note - Psychiatric Progress Note Patient seen today, length of contact: 25 minutes Patient Chief Complaint: depressed and anxious Problems Identified/Issues Discussed: I reviewed assessment and recent notes. I met with patient at bedside. He is well-oriented to date, location and circumstances. Patient reports feeling depressed and anxious. He is more hopeless than hopeful however denies having any suicidal thoughts. Affect is constricted and generally congruent to mood. His thought process is fairly coherent and responses are relevant to questioning. He is not hallucinating and denies paranoia. Delusions were not elicited. Presently patient denies any new discomfort or pain. He is tolerating his medications. Reports that he slept well. Staff notes indicate the patient has been cooperative on the unit. Visible and attending groups. There were no behavioral issues overnight. Diagnostic Results: MDD r/o substance induced mood disorder alcohol use disorder alcohol withdrawals (better) Medication Change: No ( ) Medical Record Reviewed: Yes (labs, reports,medical team consultation) Mental Status Examination - Cognitive Function Orientation: Person, Place, Situation, Time Memory: Intact Attention: Poor Concentration: Poor Association: WNL Fund of Knowledge: WNL - Mood Mood: Depressed - Affect Affect: Flat (and tearful) - Speech Speech: Appropriate - Formal Thought Process Formal Thought Process: No Impairment - Suicidal Ideation Suicidal Ideation: No - Homicidal Ideation Homicidal Ideation: No Goal/Treatment Plan - Goal/Treatment Plan Need for Continued Stay: Remain at risks for inpatient hospitalization, Severe depression anxiety, Discharge may exacerbated symptoms, Severe functional impairment Progress Toward Problem(s) and Goals/Treatment Plan: * c/w current tx and plan * Librium 50 mg QID tapered to Librium 50 mg TID on 07/29/16 * No new weekend labs * Vitals reviewed and noted below: Selected Entries 07/27/16 07/27/16 07/28/16 07:49 15:38 07:30 Temperature 97.4 F L 98.1 F Pulse Rate 90 115 H 88 Respiratory 20 20 Rate Blood Pressure 104/76 94/67 L 100/67 07/28/16 16:13 Temperature Pulse Rate 101 H Respiratory Rate Blood Pressure 97/61 L Estimated Date of D/C: 08/01/16 (we'll monitor closely)
[2016-07-29] MEDS ORDERED: Magnesium Hydroxide Susp 30 ml UD PO PRN (20:13)
--- NOTE | 2016-07-30 08:42 | PCM.PYCHPN ---
Psychiatric Progress Note - Psychiatric Progress Note Patient seen today, length of contact: 25 minutes Patient Chief Complaint: depressed and anxious Problems Identified/Issues Discussed: I reviewed recent notes and met with patient in the dayroom. He is well- oriented to date, location and circumstances. Patient reports feeling depressed and anxious. Denies any changes over the weekend but feels like he is sleeping better. Again he indicates that he feels more hopeless than hopeful however denies suicidal thoughts. Affect is constricted and generally congruent to mood. His thought process is fairly coherent and responses are relevant to questioning. He is not hallucinating and denies paranoia. Delusions were not elicited. Presently patient denies any new discomfort or pain. He is tolerating his medications. Main concern for him at this time is "to have a conversation with a nursing home social worker". Staff notes indicate the patient has been cooperative and social on the unit. Visible attending and participating in groups. There were no behavioral issues over the weekend. Diagnostic Results: MDD r/o substance induced mood disorder alcohol use disorder alcohol withdrawals (better) Medication Change: No ( ) Medical Record Reviewed: Yes (labs, reports,medical team consultation) Mental Status Examination - Cognitive Function Orientation: Person, Place, Situation, Time Memory: Intact Attention: Poor Concentration: Poor Association: WNL Fund of Knowledge: WNL - Mood Mood: Depressed, Anxious - Affect Affect: Flat (and tearful) - Speech Speech: Appropriate - Formal Thought Process Formal Thought Process: No Impairment - Suicidal Ideation Suicidal Ideation: No - Homicidal Ideation Homicidal Ideation: No Goal/Treatment Plan - Goal/Treatment Plan Need for Continued Stay: Remain at risks for inpatient hospitalization, Severe depression anxiety, Discharge may exacerbated symptoms, Severe functional impairment Progress Toward Problem(s) and Goals/Treatment Plan: * c/w current tx and plan * Librium 50 mg QID tapered to Librium 50 mg TID on 07/29/16 * No new weekend labs * Vitals reviewed and noted below: Selected Entries 07/29/16 07/29/16 07:00 16:58 Temperature 97.2 F L Pulse Rate 82 80 Respiratory 22 Rate Blood Pressure 94/62 L 94/62 L Estimated Date of D/C: 08/01/16 (we'll monitor closely)
[2016-07-30] MEDS: Multivitamin Therapeutic Tab PO SCH (10:18)
[2016-07-30] MEDS: Pantoprazole 40 mg EC Tab PO SCH (10:18)
[2016-07-30] MEDS: POLYETHYLENE GLYCOL 3350 17 GM/Dose PACKET PO SCH (14:31)
[2016-07-31] MEDS: Pantoprazole 40 mg EC Tab PO SCH (07:55)
[2016-07-31] MEDS: Multivitamin Therapeutic Tab PO SCH (07:55)
[2016-07-31] MEDS: POLYETHYLENE GLYCOL 3350 17 GM/Dose PACKET PO SCH (07:56)
--- NOTE | 2016-08-01 00:39 | PN ---
DATE: 07/31/[address] Livingston. Chart reviewed and case discussed with nursing. The patient is a 40-year-old depressed white male whose had left him in February, presumably candis use of his alcohol history. He has also lost his job over this. The patient presently appears to be pensive, obsessive, depressed, somewhat melodramatic. He is complaining of an inability to sleep; at the same time feeling sluggish in the morning. As suc h, I have lowered his trazodone 100 to 50 mg. 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 He has a long history of alcohol abuse, but he is indicating that he drinks because he is depressed. Psychotropically, he is being maintained on trazodone 50 mg, Librium will changed to a p.r.n. schedul e, he complains of some tremulousness, naltrexone 50 mg, Wellbutrin 100 mg b.i.d. Blood pressure 101/64, pulse 99. The patient is not overtly psychotic nor suicidal. Emil Bowling MD, PhD cc: [id number] TT: 08/01/2016 00:39:18 Confirmation # [id number] Dictation # [id number] marcos
[2016-08-01] MEDS: Multivitamin Therapeutic Tab PO SCH (08:40)
[2016-08-01] MEDS: POLYETHYLENE GLYCOL 3350 17 GM/Dose PACKET PO SCH (08:40)
[2016-08-01] MEDS: Pantoprazole 40 mg EC Tab PO SCH (08:40)
[2016-08-02] MEDS: POLYETHYLENE GLYCOL 3350 17 GM/Dose PACKET PO SCH ×2 (08:56→10:12)
[2016-08-02] MEDS: Pantoprazole 40 mg EC Tab PO SCH (08:57)
[2016-08-02] MEDS: Multivitamin Therapeutic Tab PO SCH (08:57)
[2016-08-03] MEDS: POLYETHYLENE GLYCOL 3350 17 GM/Dose PACKET PO SCH (08:43)
[2016-08-03] MEDS: Multivitamin Therapeutic Tab PO SCH (08:44)
[2016-08-03] MEDS: Pantoprazole 40 mg EC Tab PO SCH (08:44)
[2016-08-04 07:40] VITALS: BP 108/62; PULSE 82; RESP 16; TEMP 97.2
[2016-08-04] MEDS: Multivitamin Therapeutic Tab PO SCH (08:31)
[2016-08-04] MEDS: Pantoprazole 40 mg EC Tab PO SCH (08:45)
--- NOTE | 2016-08-04 09:00 | PCM.PYCHPN ---
Psychiatric Progress Note - Psychiatric Progress Note Patient seen today, length of contact: 25 minutes. this is note of 11/03 Patient Chief Complaint: anxiety/depression DSM 5 Symptoms Update: anxious,needy,dependant Medication Change: No ( ) Medical Record Reviewed: Yes (labs, reports,medical team consultation) Mental Status Examination - Cognitive Function Orientation: Person, Place, Situation, Time Memory: Intact Attention: Poor Concentration: Poor Association: WNL Fund of Knowledge: WNL - Mood Mood: Depressed, Anxious - Affect Affect: Flat (and tearful) - Speech Speech: Appropriate - Formal Thought Process Formal Thought Process: No Impairment - Suicidal Ideation Suicidal Ideation: No - Homicidal Ideation Homicidal Ideation: No Goal/Treatment Plan - Goal/Treatment Plan Need for Continued Stay: Remain at risks for inpatient hospitalization, Severe depression anxiety, Discharge may exacerbated symptoms, Severe functional impairment Progress Toward Problem(s) and Goals/Treatment Plan: working on transfer to rehab Estimated Date of D/C: 08/01/16 (we'll monitor closely)
[2016-08-04] MEDS: POLYETHYLENE GLYCOL 3350 17 GM/Dose PACKET PO SCH (11:12)
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
== END 2016-08-04 11:46 | disposition home or self-care (01) | DRG 426 ==
LOC: ED 06:56 → ERH 09:53 → PSYC 12:21
PROVIDERS: ADMIT Psychiatry & Neurology Psychiatry; ATTEND Psychiatry & Neurology Psychiatry
PROC: GZ3ZZZZ Medication Management (ICD-10-PCS; principal; 2016-07-26)
DX: F32.9 Major depressive disorder, single episode, unspecified (principal); F10.239 Alcohol dependence with withdrawal, unspecified; R45.851 Suicidal ideations; F41.9 Anxiety disorder, unspecified; F90.9 Attention-deficit hyperactivity disorder, unspecified type; K21.9 Gastro-esophageal reflux disease without esophagitis; F17.210 Nicotine dependence, cigarettes, uncomplicated; K29.70 Gastritis, unspecified, without bleeding; G47.00 Insomnia, unspecified

== ENCOUNTER 2016-08-04 15:50 | Inpatient (IN) | payer OTHER ==
[2016-08-04 16:01] VITALS: BMI 21.2
--- NOTE | 2016-08-04 16:12 | ED PDOC ---
Arrival/HPI - General Chief Complaint: Psychiatric Evaluation Time Seen by Provider: 08/04/16 15:55 Historian: Patient - History of Present Illness Narrative History of Present Illness (Text): 08/04/16 16:11 40 year old male sent by Dr. Sanches for evaluation. Patient was admitted for depression and discharged home through [facility]. Patient reports he tested positive for opiates and was not allowed to enter the program. Patient states he had a breakdown, still complaining of depression and suicidal ideation. No other complaints. Symptom Onset: Sudden Symptom Course: Unchanged Modifying Factors (Text): None Associated Symptoms (Text): None Past Medical History - Provider Review Nursing Documentation Reviewed: Yes - Past History Past History: No Previous - Infectious Disease Hx of Infectious Diseases: None - Tetanus Immunization Tetanus Immunization: Up to Date - Past Medical History Past Medical History: No Previous - Cardiac Hx Cardiac Disorders: No - Pulmonary Hx Respiratory Disorders: No - Neurological Hx Neurological Disorder: No - HEENT Hx HEENT Disorder: No - Renal Hx Renal Disorder: No - Endocrine/Metabolic Hx Endocrine Disorders: No - Hematological/Oncological Hx Blood Disorders: No - Integumentary Hx Dermatological Disorder: No - Musculoskeletal/Rheumatological Hx Musculoskeletal Disorders: No - Gastrointestinal Hx Gastrointestinal Disorders: No - Genitourinary/Gynecological Hx Genitourinary Disorders: No - Psychiatric Hx Psychophysiologic Disorder: Yes Hx Anxiety: Yes Hx Depression: Yes Hx Substance Use: Yes Other/Comment: ADHD - Past Surgical History Past Surgical History: No Previous - Anesthesia Hx Anesthesia: No - Suicidal Assessment Feels Threatened In Home Enviroment: No Family/Social History - Physician Review Nursing Documentation Reviewed: Yes Family/Social History: Unknown Family HX Smoking Status: Current Some Days Smoker Hx Alcohol Use: Yes Hx Substance Use: Yes Hx Substance Use Treatment: No Allergies/Home Meds Allergies/Adverse Reactions: Allergies No Known Allergies Allergy (Verified 06/01/16 01:33) Home Medications: Home Meds Medication Instructions Recorded Confirmed buPROPion [Bupropion HCl] 100 mg PO BID 08/04/16 08/04/16 Review of Systems - Physician Review All systems were reviewed & negative as marked: Yes - Review of Systems Cardiovascular: absent: Chest Pain Gastrointestinal: absent: Abdominal Pain Psychiatric: Depression, Suicidal Ideation Physical Exam Vital Signs Reviewed: Yes Vital Signs Temp Pulse Resp BP Pulse Ox 08/04/16 18:34 68 18 117/78 100 08/04/16 16:04 98.4 F 101 H 18 108/76 97 Temperature: Afebrile Blood Pressure: Normal Pulse: Regular Respiratory Rate: Normal Appearance: Positive for: Well-Appearing, Non-Toxic, Comfortable Pain Distress: None Mental Status: Positive for: Alert and Oriented X 3 - Systems Exam Head: Present: Atraumatic, Normocephalic Pupils: Present: PERRL Extroacular Muscles: Present: EOMI Conjunctiva: Present: Normal Mouth: Present: Moist Mucous Membranes Neck: Present: Normal Range of Motion Respiratory/Chest: Present: Clear to Auscultation, Good Air Exchange. No: Respiratory Distress, Accessory Muscle Use Cardiovascular: Present: Regular Rate and Rhythm, Normal S1, S2. No: Murmurs Abdomen: Present: Normal Bowel Sounds. No: Tenderness, Distention, Peritoneal Signs Back: Present: Normal Inspection Upper Extremity: Present: Normal Inspection. No: Cyanosis, Edema Lower Extremity: Present: Normal Inspection. No: Edema Neurological: Present: GCS=15, CN II-XII Intact, Speech Normal Skin: Present: Warm, Dry, Normal Color. No: Rashes Psychiatric: Present: Alert, Oriented x 3, Normal Insight, Normal Concentration Medical Decision Making ED Course and Treatment: Impression: 40 year old male sent by Dr. Sanches for evaluation. Differential Diagnosis include but are not limited to: Plan: -- EKG, Chest X-ray -- Labs -- PES evaluation -- Reassess and disposition Progress Notes: 08/04/16 17:00 Patient medically cleared for PES evaluation. 08/04/16 18:40 Patient evaluated by PES screener and accepted for admission - Lab Interpretations Lab Results: 08/04/16 16:20 08/04/16 16:20 Lab Results 08/04/16 16:20: Urine Opiates Screen Negative, Urine Methadone Screen Negative, Ur Barbiturates Screen Negative, Ur Phencyclidine Scrn Negative, Ur Amphetamines Screen Negative, U Benzodiazepines Scrn Positive H, U Oth Cocaine Metabols Negative, U Cannabinoids Screen Negative 08/04/16 16:20: Alcohol, Quantitative < 10 08/04/16 16:20: Salicylates < 1 L, Acetaminophen < 10.0 L 08/04/16 16:20: Sodium 139, Potassium 4.1, Chloride 99, Carbon Dioxide 29, Anion Gap 15, BUN 16, Creatinine 0.8, Est GFR ( Amer) > 60, Est GFR (Non- Af Amer) > 60, Random Glucose 90, Calcium 9.0, Total Bilirubin 0.3, AST 21, ALT 28, Alkaline Phosphatase 63, Total Protein 7.2, Albumin 4.2, Globulin 3.0, Albumin/Globulin Ratio 1.4 08/04/16 16:20: Urine Color Yellow, Urine Appearance Clear, Urine pH 6.0, Ur Specific [place] 1.015, Urine Protein Negative, Urine Glucose (UA) Negative, Urine Ketones Negative, Urine Blood Negative, Urine Nitrate Negative, Urine Bilirubin Negative, Urine Urobilinogen 0.2, Ur Leukocyte Esterase Negative 08/04/16 16:20: WBC 5.9, RBC 4.17, Hgb 13.1 L, Hct 39.8 L, MCV 95.4, MCH 31.4, MCHC 32.9, RDW 13.4, Plt Count 248, MPV 9.5, Gran % 67.0, Lymph % (Auto) 20.1 L , [place] % (Auto) 10.7 H, Eos % (Auto) 1.7, Baso % (Auto) 0.5, Gran # 3.96, Lymph # 1.2, [place] # 0.6, Eos # 0.1, Baso # 0.03 - RAD Interpretation Radiology Orders: 08/04/16 16:10 CHEST PORTABLE [RAD] Stat - EKG Interpretation Interpreted by ED Physician: Yes (EKG shows NSR at 93 BPM, No ST/T wave changes) Type: 12 lead EKG - Scribe Statement The provider has reviewed the documentation as recorded by the Dolly Galindo Provider Scribe Attestation: All medical record entries made by the Dolly were at my direction and personally dictated by me. I have reviewed the chart and agree that the record accurately reflects my personal performance of the history, physical exam, medical decision making, and the department course for this patient. I have also personally directed, reviewed, and agree with the discharge instructions and disposition. Disposition/Present on Arrival - Present on Arrival Any Indicators Present on Arrival: No History of DVT/PE: No History of Uncontrolled Diabetes: No Urinary Catheter: No History of Decub. Ulcer: No History Surgical Site Infection Following: None - Disposition Have Diagnosis and Disposition been Completed?: Yes Diagnosis: Depression, Alcohol use disorder Disposition: HOSPITALIZED Disposition Time: 07:00 Condition: STABLE Referrals: Krista Juan DO [Primary Care Provider] - Follow up with primary
[2016-08-04 16:31] LABS: URINE BILIRUBIN NEGATIVE (NEGATIVE); URINE BLOOD NEGATIVE (NEGATIVE); URINE GLUCOSE (UA) NEGATIVE (NEGATIVE); URINE LEUKOCYTE ESTERASE NEGATIVE Leu/uL (NEGATIVE); URINE NITRATE NEGATIVE (NEGATIVE); URINE PROTEIN NEGATIVE mg/dL (<30 mg/dL); URINE UROBILINOGEN 0.2 E.U./dL (<1 E.U./dL)
[2016-08-04 16:32] LABS: URINE APPEARANCE CLEAR (CLEAR); URINE COLOR YELLOW (YELLOW)
[2016-08-04 16:47] LABS: BARBITURATES, UR NEGATIVE (NEGATIVE); BENZODIAZEPINES, UR POSITIVE (NEGATIVE); OPIATES, UR NEGATIVE (NEGATIVE); PHENCYCLIDINE, UR NEGATIVE (NEGATIVE); SALICYLATE < 1 mg/dL (2.0-20.0)
[2016-08-04 16:48] LABS: ALB/GLOB RATIO 1.4 (1.1-1.8); ALBUMIN 4.2 g/dL (3.0-4.8); ALT/SGPT 28 U/L (7-56); AST/SGOT 21 U/L (15-59); BASO # 0.03 K/mm3 (0.0-2.0); BASO % 0.5 % (0.0-3.0); BLOOD UREA NITROGEN 16 mg/dL (7-21); EOS # 0.1 (0.0-0.7); EOS % 1.7 % (1.5-5.0); GFR AFRICAN-AMERICAN > 60; GFR NON-AFRICAN AMERICAN > 60; GRAN # 3.96 (1.4-6.5); HEMOGLOBIN 13.1 gm/dL (14.0-18.0); LYMPH # 1.2 (1.2-3.4); LYMPH % 20.1 % (22.0-35.0); MEAN CELL VOLUME 95.4 fL (80.0-105.0); MEAN CORPUSCULAR HEMOGLOBIN 31.4 pg (25.0-35.0); MEAN CORPUSCULAR HGB CONC 32.9 g/dl (31.0-37.0); MEAN PLATELET VOLUME 9.5 fl (7.0-11.0); MONO # 0.6 (0.1-0.6); MONO % 10.7 % (1.0-6.0); PLATELET COUNT 248 10^3/uL (120.0-450.0); RBC 4.17 10^6/uL (3.5-6.1); RED CELL DISTRIBUTION WIDTH 13.4 % (11.5-14.5); WHITE BLOOD COUNT 5.9 10^3/ul (4.5-11.0)
[2016-08-04 16:50] LABS: ACETAMINOPHEN < 10.0 ug/ml (10.0-20.0)
--- NOTE | 2016-08-04 17:57 | RAD ---
HISTORY: pes COMPARISON: 07/26/2016 FINDINGS: LUNGS: No active pulmonary disease. PLEURA: No significant pleural effusion identified, no pneumothorax apparent. CARDIOVASCULAR: Normal. OSSEOUS STRUCTURES: No significant abnormalities. VISUALIZED UPPER ABDOMEN: Normal. OTHER FINDINGS: None. IMPRESSION: No active disease. M No significant interval change compared to the prior examination(s).
[2016-08-04 18:34] VITALS: O2SAT 100
--- NOTE | 2016-08-04 19:58 | CARD ---
APPROVED REPORT EKG Measurement Heart [id number] <Conclusion> Normal sinus rhythm Normal ECG
[2016-08-04] MEDS ORDERED: Magnesium Hydroxide Susp 30 ml UD PO PRN (20:16)
[2016-08-04] MEDS ORDERED: Alum-Mag Hydrox-Simethicone Susp (30 mL) PO PRN (20:16)
--- NOTE | 2016-08-04 21:38 | PCM.BM ---
<Pily Mays - Last Filed: 08/04/16 21:38> Treatment Plan Problems - Problems identified on initial assessmt Anxiety Date Initiated: 08/04/16 Time Initiated: 16:19 Assessment reference: NA Status: Active Priority: 1 depression Date Initiated: 08/04/16 Time Initiated: 16:20 Assessment reference: NA Status: Active Priority: 2 Ineffective coping Date Initiated: 08/04/16 Time Initiated: 16:22 Assessment reference: NA Status: Active Priority: 3 alcohol use Date Initiated: 08/04/16 Time Initiated: 10:25 Assessment reference: NA Status: Active Priority: 4 Suicidal Date Initiated: 07/26/16 Time Initiated: 16:20 Assessment reference: NA Status: Active Priority: 2 Treatment assets and liabiliti Patient Assests: cooperative, educated, motivated, self-reliant, ADL independent , negotiates basic needs, cognitively intact Patient Liabilities: live alone, financial problems, poor support system, relationship conflicts, substance abuse - Milieu Protocol Maintain good personal hygiene: daily Encourage regular showers, every shift Remind patient to perform daily oral care Maintain personal safety: every shift Educate patient to report safety concerns to staff, every shift Monitor environment for contraband/sharps Medication safety: Monitor for expected outcome, potential side effects: every shift, Assess barriers to learning: every shift, Assess readiness for medication education: every shift Family Contact Family involvement: Family/SO is involved Family contact: Patient agrees to contact Family contact name: DIANNA HANLEY Family contact comment: LEFT HIM WITH THEIR KIDS..DUE TO HIS BEING ALCOHOLIC - Goals for Treatment Patient goals for treatment: TO ENTER A REHAB PROGRAM AND FIND A PLACE TO LIVE.. Discharge/Continuing Care - Education Needs Education Needs: Patient Medication, Patient Diagnosis/Disease Process, Patient Coping Skills, Patient Anger Management skills, Patient Placement options, Patient Community resources, Patient Activities of Daily Living, Patient Health Practices/Safety, Patient Personal Hygiene/Grooming, Patient Aftercare Safety Plan - Discharge Discharge Criteria: Tolerates medication w/o severe side effects, Free of Suicidal thoughts, Normal sleep pattern, Ability to care for self, No longer exhibiting s/s of withdrawal Discharge to:: Home <Verónica Livingston - Last Filed: 08/05/16 13:39> - Diagnosis (1) Depression Status: Acute Interventions: 08/05/16 13:39 * Assess/adjust medications daily and /or as needed * Discuss risks, benefits, side effects and alternatives of medications * See patient on an individual basis 7x/week to assess level of suicidal thoughts, symptoms of depression * coping strategies * relapse prevention * meds and f/u compliance * family involvement * (2) Alcohol use disorder Status: Chronic Interventions: 08/05/16 13:40 Assess/adjust medications daily and /or as needed * Discuss risks, benefits, side effects and alternatives of medications, naltrexone implementation * See patient on an individual basis 7x/week to assess level of suicidal thoughts, symptoms of depression * coping strategies * relapse prevention * meds and f/u compliance * family involvement * rehabilitation (3) Alcohol dependence with uncomplicated withdrawal Status: Resolved Interventions: 08/05/16 13:41 med management vitals multivitamines, thiamine, folic acid naltrexone (4) MDD (major depressive disorder) Status: Resolved Interventions: 08/05/16 13:41 * Assess/adjust medications daily and /or as needed * See patient on an individual basis 7x/week to assess symptoms of depression * Monitor for side effects & effectiveness of medications * suicide prevention * education * coping/relaxation techniques * CBT * <Lina Jean Y - Last Filed: 08/07/16 08:24>
[2016-08-05] MEDS: Multivitamin Therapeutic Tab PO SCH (09:40)
[2016-08-05] MEDS: Pantoprazole 40 mg EC Tab PO SCH ×2 (09:40)
[2016-08-06] MEDS: Pantoprazole 40 mg EC Tab PO SCH (08:57)
[2016-08-06] MEDS: Multivitamin Therapeutic Tab PO SCH (08:57)
--- NOTE | 2016-08-06 11:17 | PCM.PYCHPN ---
Psychiatric Progress Note - Psychiatric Progress Note Patient seen today, length of contact: 30min Patient Chief Complaint: "I feel little better, I slept better yesterday, it is kind of unusual for me, overall I am better" Problems Identified/Issues Discussed: Suicide/ homicide prevention, past psychiatric h/o, current psychiatric symptoms , medical problems, risk/benefits and alternatives of medications, medications compliance, coping strategies, substance abuse h/o, relapse prevention, importance of follow up with psychiatrist and therapist, discharge plan. Medical Problems: see HPI Diagnostic Results: 08/04/16 16:20 08/04/16 16:20 Lab Results 08/04/16 16:20: Urine Opiates Screen Negative, Urine Methadone Screen Negative, Ur Barbiturates Screen Negative, Ur Phencyclidine Scrn Negative, Ur Amphetamines Screen Negative, U Benzodiazepines Scrn Positive H, U Oth Cocaine Metabols Negative, U Cannabinoids Screen Negative 08/04/16 16:20: Alcohol, Quantitative < 10 08/04/16 16:20: Salicylates < 1 L, Acetaminophen < 10.0 L 08/04/16 16:20: Sodium 139, Potassium 4.1, Chloride 99, Carbon Dioxide 29, Anion Gap 15, BUN 16, Creatinine 0.8, Est GFR ( Amer) > 60, Est GFR (Non- Af Amer) > 60, Random Glucose 90, Calcium 9.0, Total Bilirubin 0.3, AST 21, ALT 28, Alkaline Phosphatase 63, Total Protein 7.2, Albumin 4.2, Globulin 3.0, Albumin/Globulin Ratio 1.4 08/04/16 16:20: Urine Color Yellow, Urine Appearance Clear, Urine pH 6.0, Ur Specific [place] 1.015, Urine Protein Negative, Urine Glucose (UA) Negative, Urine Ketones Negative, Urine Blood Negative, Urine Nitrate Negative, Urine Bilirubin Negative, Urine Urobilinogen 0.2, Ur Leukocyte Esterase Negative 08/04/16 16:20: WBC 5.9, RBC 4.17, Hgb 13.1 L, Hct 39.8 L, MCV 95.4, MCH 31.4, MCHC 32.9, RDW 13.4, Plt Count 248, MPV 9.5, Gran % 67.0, Lymph % (Auto) 20.1 L , [place] % (Auto) 10.7 H, Eos % (Auto) 1.7, Baso % (Auto) 0.5, Gran # 3.96, Lymph # 1.2, [place] # 0.6, Eos # 0.1, Baso # 0.03 Vital Signs Temp Pulse Resp BP Pulse Ox 08/06/16 07:47 97.3 F L 76 20 91/58 L 08/05/16 07:07 97.8 F 94 H 18 103/73 08/04/16 20:40 20 08/04/16 20:36 97.6 F 94 H 20 115/80 08/04/16 18:34 68 18 117/78 100 08/04/16 16:04 98.4 F 101 H 18 108/76 97 DSM 5 Symptoms Update: shortly pt is 40yo male, self reported h/o ADHD, h/o alcohol use disorder, self reported h/o MDD, not working, from the family//kids due to his alcohol addiction, was discharge from the psychiatric inpatient unit yesterday August 04 inpatient alcohol rehabilitation [facility], patient urine was checked for substances in the rehabilitation which was positive for opioids, patient was not accepted there, patient came back to the hospital saying that he did not use any opioids, pt said that he was not able to contract for safety , pt was making statements like "I lost everything, I was willing to stay in rehab, I wanted to get better, but they did not accept me, I lost my family, I lost my apartment, I cannot guarantee that I will not hurt myself...", pt was admitted for observation. pt was seen and examined today, patient presented with acceptable personal hygiene good ADLs. pt was seen next to the Nursing station today, hygiene is better, affect is more reactive, pt said that he feels better, had a good night sleep, pt also said that he is determine to quit drinking and put his life back on track. Pt does not want meds to be adjusted "I feel good on these doses" pt said that he feels less anxious today, did ask only one dose of Vistaril. pt denied v/a/t hallucinations, denied paranoid ideation, does not present to be psychotic. Impression: MDD alcohol use disorder r/o substance induced mood disorder Medication Change: No Medical Record Reviewed: Yes Consults ordered or reviewed: medical team saw pt Mental Status Examination - Cognitive Function Orientation: Person, Place, Situation, Time Memory: Intact Attention: WNL Concentration: WNL Association: WNL Fund of Knowledge: WNL - Mood Mood: Depressed (less), Anxious (less) - Affect Affect: Flat - Speech Speech: Appropriate - Formal Thought Process Formal Thought Process: No Impairment - Suicidal Ideation Suicidal Ideation: No - Homicidal Ideation Homicidal Ideation: No Goal/Treatment Plan - Goal/Treatment Plan Need for Continued Stay: Remain at risks for inpatient hospitalization, Severe depression anxiety, Discharge may exacerbated symptoms, Failed transitioning, Severe functional impairment Progress Toward Problem(s) and Goals/Treatment Plan: milieu, structure, supportive therapy Folic Acid 1 mg PO DAILY resumed Multivitamin Therapeutic Tab [Thera Tab] 1 tab PO daily Naltrexone [Revia] 50 mg PO DAILY Pantoprazole [Protonix EC Tab] 40 mg POdaily Thiamine [Vitamin B1 Tab] 100 mg PO DAILY buPROPion [Bupropion HCl] 100 mg PO BID for depression and possible ADHD hydrOXYzine Pamoate [Vistaril] 0 mg Q8 hours as needed for anxiety Librium was dc traZODone [Desyrel] 50 mg PO HS for insomnia and depression Patient most likely will be accepted into inpatient rehabilitation [facility] 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
[2016-08-07 07:31] VITALS: BP 98/67; PULSE 93; RESP 20; TEMP 98.1
[2016-08-07] MEDS: Pantoprazole 40 mg EC Tab PO SCH (09:26)
[2016-08-07] MEDS: Multivitamin Therapeutic Tab PO SCH (09:26)
--- NOTE | 2016-08-07 12:40 | PCM.PYCHDC ---
Mental Status Examination - Mental Status Examination Orientation: Person, Place, Situation, Time Memory: Intact Mood: Neutral Affect: Constricted (but reactive, mood congruent) Speech: Appropriate Attention: WNL Concentration: WNL Association: WNL Fund of Knowledge: WNL Formal Thought Process: No Impairment Description of patient's judgement and insight: Pt has improved insight into mental and medical illness, pt was compliant with medications and unit rules and regulations, pt was going to groups, was calm, cooperative, socially appropriate, no behavioral incidents, no agitation, no aggression. Psychotic Thoughts and Behaviors: Pt denied v/a/t hallucinations, denied paranoid ideations, pt does not appear to be psychotic, and thought process is goal directed. Suicidal Ideation: No Current Homicidal Ideation?: No Plan: pt adamantly denied thoughts of harming self or others denied intent or plan. Discharge Summary - Discharge Note Reason for Hospitalization: pt was admitted for suicidal ideation, was not able to contract for safety. Psychiatric History (includes Medical, Family, Personal Hx): see HPI Laboratory Data: 08/04/16 16:20 08/04/16 16:20 Lab Results 08/04/16 16:20: Urine Opiates Screen Negative, Urine Methadone Screen Negative, Ur Barbiturates Screen Negative, Ur Phencyclidine Scrn Negative, Ur Amphetamines Screen Negative, U Benzodiazepines Scrn Positive H, U Oth Cocaine Metabols Negative, U Cannabinoids Screen Negative 08/04/16 16:20: Alcohol, Quantitative < 10 08/04/16 16:20: Salicylates < 1 L, Acetaminophen < 10.0 L 08/04/16 16:20: Sodium 139, Potassium 4.1, Chloride 99, Carbon Dioxide 29, Anion Gap 15, BUN 16, Creatinine 0.8, Est GFR ( Amer) > 60, Est GFR (Non- Af Amer) > 60, Random Glucose 90, Calcium 9.0, Total Bilirubin 0.3, AST 21, ALT 28, Alkaline Phosphatase 63, Total Protein 7.2, Albumin 4.2, Globulin 3.0, Albumin/Globulin Ratio 1.4 08/04/16 16:20: Urine Color Yellow, Urine Appearance Clear, Urine pH 6.0, Ur Specific [place] 1.015, Urine Protein Negative, Urine Glucose (UA) Negative, Urine Ketones Negative, Urine Blood Negative, Urine Nitrate Negative, Urine Bilirubin Negative, Urine Urobilinogen 0.2, Ur Leukocyte Esterase Negative 08/04/16 16:20: WBC 5.9, RBC 4.17, Hgb 13.1 L, Hct 39.8 L, MCV 95.4, MCH 31.4, MCHC 32.9, RDW 13.4, Plt Count 248, MPV 9.5, Gran % 67.0, Lymph % (Auto) 20.1 L , R[place]y % (Auto) 10.7 H, Eos % (Auto) 1.7, Baso % (Auto) 0.5, Gran # 3.96, Lymph # 1.2, Ripley # 0.6, Eos # 0.1, Baso # 0.03 Vital Signs Temp Pulse Resp BP Pulse Ox 08/07/16 07:30 98.1 F 93 H 20 98/67 L 08/06/16 15:00 97.8 F 71 17 113/71 08/06/16 07:47 97.3 F L 76 20 91/58 L 08/05/16 07:07 97.8 F 94 H 18 103/73 08/04/16 20:40 20 08/04/16 20:36 97.6 F 94 H 20 115/80 08/04/16 18:34 68 18 117/78 100 08/04/16 16:04 98.4 F 101 H 18 108/76 97 Consultations:: List each consultation separately and include: 1. Reason for request. 2. Findings. 3. Follow-up Consultations: medical team saw pt see notes for more detailed information Summary of Hospital Course include:: 1. Description of specific treatment plan utilized for patients during their course of treatmen. 2. Summarize the time- course for resolution of acute symptoms and/or regressed behaviors. 3. Describe issues identified and worked on during hospitalization. 4. Describe medication utilized. 5. Describe medical problems identified and treated. 6. Reassessment of suicide risk Summary of Hospital Course: shortly pt is 40yo male, self reported h/o ADHD, h/o alcohol use disorder, self reported h/o MDD, not working, from the family//kids due to his alcohol addiction, was discharge from the psychiatric inpatient unit on August 04 , to inpatient alcohol rehabilitation [facility], patient urine was checked for substances in the rehabilitation which was positive for opioids, patient was not accepted there, patient came back to the hospital saying that he did not use any opioids, pt said that he was not able to contract for safety, pt was making statements like "I lost everything, I was willing to stay in rehab, I wanted to get better, but they did not accept me, I lost my family, I lost my apartment, I cannot guarantee that I will not hurt myself...", pt was admitted for observation. pt was seen and examined patient presented with acceptable personal hygiene good ADLs. pt said that "it took me a while to make decision to go to inpatient rehab, I gave up my apartment, I have no home, I do not work, I was very hopeless yesterday...", pt said that he took a train in order to get back to the hospital. Pt said "I could kill myself if you would not admit me yesterday, I was in very bad shape...", pt said "I feel little better now". pt denied thoughts of harming self or others, came to the hospital looking for help, seems to have a good insight and judgment. UDS was done in ED, which came back positive only for benzos, no opioids. pt said that he feels less anxious today. no h/o abuse. pt denied v/a/t hallucinations, denied paranoid ideation, does not present to be psychotic. denied using drugs, but alcohol, smokes pack a day, counseling provided. pt denied manic episodes in the past. from the previous admission: pt reported two suicidal attempts in the past about three months ago "I was hitting my face, it was very bad", second prior to come to the hospital, no previous psych hospitalizations. as per pt he was dx with ADHD, but his mother refused pt to be on any meds. family h/o: cousin bipolar, no suicidal attempts in the family. medical h/o: pt denied, pt is weaned off librium. pt asked for meds for anxiety, not addictive, vistaril was started. 08/04/16 16:20 08/04/16 16:20 Lab Results 08/04/16 16:20: Urine Opiates Screen Negative, Urine Methadone Screen Negative, Ur Barbiturates Screen Negative, Ur Phencyclidine Scrn Negative, Ur Amphetamines Screen Negative, U Benzodiazepines Scrn Positive H, U Oth Cocaine Metabols Negative, U Cannabinoids Screen Negative 08/04/16 16:20: Alcohol, Quantitative < 10 08/04/16 16:20: Salicylates < 1 L, Acetaminophen < 10.0 L 08/04/16 16:20: Sodium 139, Potassium 4.1, Chloride 99, Carbon Dioxide 29, Anion Gap 15, BUN 16, Creatinine 0.8, Est GFR ( Amer) > 60, Est GFR (Non- Af Amer) > 60, Random Glucose 90, Calcium 9.0, Total Bilirubin 0.3, AST 21, ALT 28, Alkaline Phosphatase 63, Total Protein 7.2, Albumin 4.2, Globulin 3.0, Albumin/Globulin Ratio 1.4 08/04/16 16:20: Urine Color Yellow, Urine Appearance Clear, Urine pH 6.0, Ur Specific [place] 1.015, Urine Protein Negative, Urine Glucose (UA) Negative, Urine Ketones Negative, Urine Blood Negative, Urine Nitrate Negative, Urine Bilirubin Negative, Urine Urobilinogen 0.2, Ur Leukocyte Esterase Negative 08/04/16 16:20: WBC 5.9, RBC 4.17, Hgb 13.1 L, Hct 39.8 L, MCV 95.4, MCH 31.4, MCHC 32.9, RDW 13.4, Plt Count 248, MPV 9.5, Gran % 67.0, Lymph % (Auto) 20.1 L , Ripley % (Auto) 10.7 H, Eos % (Auto) 1.7, Baso % (Auto) 0.5, Gran # 3.96, Lymph # 1.2, Ripley # 0.6, Eos # 0.1, Baso # 0.03 Vital Signs Temp Pulse Resp BP Pulse Ox 08/05/16 07:07 97.8 F 94 H 18 103/73 08/04/16 20:40 20 08/04/16 20:36 97.6 F 94 H 20 115/80 08/04/16 18:34 68 18 117/78 100 08/04/16 16:04 98.4 F 101 H 18 108/76 97 of note: pt was provided only with 7days supply of his meds due to the pharmacy mistake (pt has no insurance, pharmacist cannot give more than 7days supply, pharmacist thought SW left for today, on the bottle it said 30 days supply , but pt was given only 7 days supply). patient was resumed on all of the psychotropic medications, patient stated over the weekend in the psychiatric inpatient unit, urine drug screen was checked and it was negative for any opioids, most likely was false-positive back in inpatient rehabilitation, to the medical social consultant gave a call to [facility], patient was accepted there, this parts data writer [place] [facility] [place], patient was provided with 30 day supply of the medications, please see medication reconciliation form. Over the course of this hospitalization pt was attending groups, pt also had medication management, had therapeutic milieu. Overall pt improved significantly, pt's affect became brighter, pt was less depressed, has realistic future oriented plans, pt also does not appear to be psychotic, or anxious, pt was socially appropriate, no behavioral issues. At the time of the discharge pt denied been depressed, denied thoughts of harming self or others, denied psychotic symptoms, and pt does not appeared to be psychotic, denied been anxious, was considered to pose no threat to self or others, will be following up at inpatient rehabilitation psychiatrist, information about follow up appointment, time and address provided to the pt, it is patient responsibility to follow up with outpatient clinic, PMD as well as specialists (see SW note for more detailed information). In case pt will need to obtain results of studies pending at discharge pt was provided with contact information of Psychiatric Inpatient unit [phone] as well as Medical Record Department [phone]. Nicotine patch was offered Counseling about smoking and alcohol cessation provided pt will be d/c today to the [facility]. Folic Acid 1 mg PO DAILY Multivitamin Therapeutic Tab [Thera Tab] 1 tab PO daily Naltrexone [Revia] 50 mg PO DAILY for alcohol cravings Thiamine [Vitamin B1 Tab] 100 mg PO DAILY buPROPion [Bupropion HCl] 100 mg PO BID for depression and possible ADHD hydrOXYzine Pamoate [Vistaril] 25 mg Q8 hours as needed for anxiety Librium was dc traZODone [Desyrel] 50 mg PO HS for insomnia and depression Pt was educated about safety plan in case of worsening of symptoms or in case of suicidal or homicidal ideation call 911 or go to the nearest ER, also was educated to take meds as prescribed and stay away from drugs, pt verbalized understanding. - Diagnosis (1) Depression Current Visit: Yes Status: Acute Priority: Low (2) Alcohol use disorder Current Visit: Yes Status: Chronic Priority: High (3) Alcohol dependence with uncomplicated withdrawal Current Visit: No Status: Resolved Priority: Low (4) MDD (major depressive disorder) Current Visit: No Status: Resolved Priority: Low - Final Diagnosis (DSM 5) Condition upon Discharge: STABLE Disposition: HOME/ ROUTINE Follow-up Treatment Plan: At the time of the discharge pt denied been depressed, denied thoughts of harming self or others, denied psychotic symptoms, and pt does not appeared to be psychotic, denied been anxious, was considered to pose no threat to self or others, will be following up at inpatient rehabilitation psychiatrist, information about follow up appointment, time and address provided to the pt, it is patient responsibility to follow up with outpatient clinic, PMD as well as specialists (see SW note for more detailed information). In case pt will need to obtain results of studies pending at discharge pt was provided with contact information of Psychiatric Inpatient unit [phone] as well as Medical Record Department [phone]. Nicotine patch was offered Counseling about smoking and alcohol cessation provided pt will be d/c today to the [facility]. Folic Acid 1 mg PO DAILY Multivitamin Therapeutic Tab [Thera Tab] 1 tab PO daily Naltrexone [Revia] 50 mg PO DAILY for alcohol cravings Thiamine [Vitamin B1 Tab] 100 mg PO DAILY buPROPion [Bupropion HCl] 100 mg PO BID for depression and possible ADHD hydrOXYzine Pamoate [Vistaril] 25 mg Q8 hours as needed for anxiety Librium was dc traZODone [Desyrel] 50 mg PO HS for insomnia and depression Pt was educated about safety plan in case of worsening of symptoms or in case of suicidal or homicidal ideation call 911 or go to the nearest ER, also was educated to take meds as prescribed and stay away from drugs, pt verbalized understanding. Prescriptions/Medication Reconciliation: buPROPion SR [Wellbutrin] 100 mg PO BID #60 t12 Folic Acid 1 mg PO DAILY #30 tab hydrOXYzine Pamoate [Vistaril] 25 mg PO Q8H PRN #90 cap PRN Reason: Anxiety Multivitamin Therapeutic Tab [Thera Tab] 1 tab PO 0800 #30 tab Naltrexone [Revia] 50 mg PO DAILY #30 tab Nicotine 21 mg/24 hr [Nicoderm Cq] 1 patch TD DAILY #30 patch Thiamine [Vitamin B1 Tab] 100 mg PO DAILY #30 tab traZODone [Desyrel] 50 mg PO HS #30 tab - Smoking Cessation Smoking Cessation Medication prescribed: Yes - Antipsychotic Medications Pt discharged on 2 or more routine antipsychotic medications: No
--- NOTE | 2016-08-08 12:07 | CP.PCM.CON ---
<Alexandro Thomas - Last Filed: 08/08/16 12:06> History of Present Illness - History of Present Illness History of Present Illness: Consult note for Medicine: 40M with pmh of chronic etoh abuse and GERD presents to the psychiatry unit for depression and suicidal ideation. Pt states that he was in a rehab and he testd positive for opiodes which he states was impossible and sent to the hospital. He denies any medical complaints at this time. He does complain of mild abd pain but states that it is relieved with Protonix. He mona any nguyen, dizziness, f /c, sob, cp, abd pain, n/v/d, urinary or bm changes. PMH: Gerd and etoh abuse PSH: denies Med: refer to MAR ALL: [facility] SH: chronic etoh abuse, denies smoking and drinking FH: noncontributory Review of Systems - Review of Systems All systems: reviewed and no additional remarkable complaints except (HPI) Past Patient History - Infectious Disease Hx of Infectious Diseases: None - Tetanus Immunizations Tetanus Immunization: Up to Date - Past Social History Smoking Status: Current Some Days Smoker - CARDIAC Hx Cardiac Disorders: No - PULMONARY Hx Respiratory Disorders: No - NEUROLOGICAL Hx Neurological Disorder: No - HEENT Hx HEENT Problems: No - RENAL Hx Chronic Kidney Disease: No - ENDOCRINE/METABOLIC Hx Endocrine Disorders: No - HEMATOLOGICAL/ONCOLOGICAL Hx Blood Disorders: No - INTEGUMENTARY Hx Dermatological Problems: No - MUSCULOSKELETAL/RHEUMATOLOGICAL Hx Musculoskeletal Disorders: No - GASTROINTESTINAL Hx Gastrointestinal Disorders: No - GENITOURINARY/GYNECOLOGICAL Hx Genitourinary Disorders: No - PSYCHIATRIC Hx Substance Use: Yes - SURGICAL HISTORY Hx Surgeries: No - ANESTHESIA Hx Anesthesia: No Meds Home Medications: Home Medication List Medication Instructions Recorded Confirmed Type Folic Acid 1 mg PO DAILY #30 tab 08/07/16 Rx Multivitamin Therapeutic Tab 1 tab PO 0800 #30 tab 08/07/16 Rx [Thera Tab] Naltrexone [Revia] 50 mg PO DAILY #30 tab 08/07/16 Rx Nicotine 21 mg/24 hr [Nicoderm Cq] 1 patch TD DAILY #30 patch 08/07/16 Rx Thiamine [Vitamin B1 Tab] 100 mg PO DAILY #30 tab 08/07/16 Rx buPROPion SR [Wellbutrin] 100 mg PO BID #60 t12 08/07/16 Rx hydrOXYzine Pamoate [Vistaril] 25 mg PO Q8H PRN #90 cap 08/07/16 Rx traZODone [Desyrel] 50 mg PO HS #30 tab 08/07/16 Rx Allergies/Adverse Reactions: Allergies Allergy/AdvReac Type Severity Reaction Status Date / Time No Known Allergies Allergy Verified 08/05/16 00:42 - Medications Medications: Current Medications Acetaminophen (Tylenol 325mg Tab) 650 mg PO Q4H PRN PRN Reason: Pain, Mild (1-3) Al Hydrox/Mg Hydrox/Simethicone (Maalox Plus 30 Ml) 30 ml PO DAILY PRN PRN Reason: Upset Stomach Bupropion HCl (Wellbutrin) 100 mg PO BID [facility] Last Admin: 08/05/16 09:40 Dose: 100 mg Folic Acid (Folic Acid) 1 mg PO DAILY [facility] Last Admin: 08/05/16 09:40 Dose: 1 mg Hydroxyzine Pamoate (Vistaril) 50 mg PO Q8 PRN; Protocol PRN Reason: Anxiety Magnesium Hydroxide (Milk Of Magnesia) 30 ml PO DAILY PRN PRN Reason: Constipation Multivitamins (Thera Tab) 1 tab PO 0800 [facility] Last Admin: 08/05/16 09:40 Dose: 1 tab Naltrexone HCl (Revia) 50 mg PO DAILY [facility] Last Admin: 08/05/16 09:40 Dose: 50 mg Nicotine (Nicoderm Cq) 1 patch TD DAILY [facility] Last Admin: 08/05/16 11:25 Dose: 1 patch Pantoprazole Sodium (Protonix Ec Tab) 40 mg PO ACB [facility] Last Admin: 08/05/16 09:40 Dose: 40 mg Thiamine HCl (Vitamin B1 Tab) 100 mg PO DAILY [facility] Last Admin: 08/05/16 09:40 Dose: 100 mg Trazodone HCl (Desyrel) 50 mg PO HS [facility] Last Admin: 08/04/16 21:10 Dose: 50 mg Physical Exam - Constitutional Appears: No Acute Distress - Head Exam Head Exam: ATRAUMATIC, NORMAL INSPECTION, NORMOCEPHALIC - Eye Exam Eye Exam: EOMI, Normal appearance, PERRL Pupil Exam: NORMAL ACCOMODATION, PERRL - ENT Exam ENT Exam: Mucous Membranes Moist, Normal Exam - Neck Exam Neck exam: Positive for: Normal Inspection - Respiratory Exam Respiratory Exam: Clear to Auscultation Bilateral, NORMAL BREATHING PATTERN - Cardiovascular Exam Cardiovascular Exam: REGULAR RHYTHM, RRR, +S1, +S2 - GI/Abdominal Exam GI & Abdominal Exam: Normal Bowel Sounds, Soft. absent: Tenderness - Extremities Exam Extremities exam: Positive for: normal inspection - Back Exam Back exam: NORMAL INSPECTION - Neurological Exam Neurological exam: Alert, CN II-XII Intact, Normal Gait, Oriented x3, Reflexes Normal - Psychiatric Exam Psychiatric exam: Normal Affect, Normal Mood - Skin Skin Exam: Dry, Intact, Normal Color, Warm Results - Vital Signs Recent Vital Signs: Last Vital Signs Temp 97.8 F 08/05/16 07:07 Pulse 94 H 08/05/16 07:07 Resp 18 08/05/16 07:07 BP 103/73 08/05/16 07:07 Pulse Ox 100 08/04/16 18:34 - Labs Result Diagrams: 08/04/16 16:20 08/04/16 16:20 Assessment & Plan - Assessment and Plan (Free Text) Assessment: 40M with pmh of chronic etoh abuse and GERD presents to the psychiatry unit for depression and suicidal ideation. 1. Depression Management as per psychiatry 2.Gerd: Protonix 40mg daily Tylenol PRN 3.ETOH withdrawals/ abuse Multivitamin Folic acid and thiamine Case and plan was seen, reviewed and discussed in detail with Dr Herrera. <Sharon LEVI,[facility] - Last Filed: 08/19/16 11:36> Results - Vital Signs Recent Vital Signs: Last Vital Signs Temp 98.1 F 08/07/16 07:30 Pulse 93 H 08/07/16 07:30 Resp 20 08/07/16 07:30 BP 98/67 L 08/07/16 07:30 Pulse Ox 100 08/04/16 18:34 - Labs Result Diagrams: 08/04/16 16:20 08/04/16 16:20 Attending/Attestation - Attestation I have personally seen and examined this patient.: Yes I have fully participated in the care of the patient.: Yes I have reviewed all pertinent clinical information: Yes Notes (Text): 08/19/16 11:34 Patient was seen and examined with general medical practitioner .Agreed with resident assessment and plan. 40M with pmh of chronic alcohol abuse and GERD presents to the psychiatry unit for depression and suicidal ideation Patient is stable at his [facility].There is no active medical issue at this time , we will sign off, please call us back if any question. Management plan was discussed in detail with patient Education was provided. 08/19/16 11:36
== END 2016-08-07 13:15 | disposition home or self-care (01) | DRG 426 ==
LOC: ED 15:50 → ERH 18:38 → PSYC 19:34
PROVIDERS: ADMIT Psychiatry & Neurology Psychiatry; ATTEND Psychiatry & Neurology Psychiatry
DX: F32.9 Major depressive disorder, single episode, unspecified (principal); R45.851 Suicidal ideations; F10.239 Alcohol dependence with withdrawal, unspecified; F19.94 Other psychoactive substance use, unspecified with psychoactive substance-induced mood disorder; F17.210 Nicotine dependence, cigarettes, uncomplicated; F41.9 Anxiety disorder, unspecified; F90.9 Attention-deficit hyperactivity disorder, unspecified type; G47.00 Insomnia, unspecified; K21.9 Gastro-esophageal reflux disease without esophagitis; Z79.899 Other long term (current) drug therapy; R40.2412 Glasgow coma scale score 13-15, at arrival to emergency department